=== PATIENT | male | born 1980 | race Caucasian/White ===

== ENCOUNTER 2017-03-12 10:36 | Observation (INO) | payer OTHER ==
[2017-03-12] MEDS ORDERED: LIDO/EPI 1% **Not for Epidural 20 ML MDV ONE (12:53)
[2017-03-12] MEDS ORDERED: EPINEPHrine 30 MG/30 ML MDV ONE (12:53)
[2017-03-12] MEDS ORDERED: METHYLENE BLUE 0.5% 50 MG/10 ML AMP ONE (12:53)
[2017-03-12] MEDS ORDERED: LIDOCAINE 1% 2 ML INJ ONE (13:02)
[2017-03-12] MEDS ORDERED: LIDOCAINE 1% 5 ML SDV ID PRN (13:28)
[2017-03-12] MEDS ORDERED: LR 1,000 ML IV ONE (13:28)
--- NOTE | 2017-03-12 13:36 | PDANEPAE ---
ANE Past Medical History - Cardiovascular History Hx Hypertension: No Hx Arrhythmias: No Hx Chest Pain: No Hx Coronary Artery / Peripheral Vascular Disease: No Hx CHF / Valvular Disease: No Hx Palpitations: No - Pulmonary History Hx COPD: No Hx Asthma/Reactive Airway Disease: No Hx Recent Upper Respiratory Infection: No Hx Oxygen in Use at Home: No - Neurologic History Hx Cerebrovascular Accident: No Hx Seizures: No Hx Dementia: No - Endocrine History Hx Diabetes: No - Renal History Hx Renal Disorders: No - Liver History Hx Hepatic Disorders: No - Neurological & Psychiatric Hx Hx Neurological and Psychiatric Disorders: No - Cancer History Hx Cancer: No - Congenital Disorder History Hx Congenital Disorders: No - GI History Hx Gastrointestinal Disorders: No - Chronic Pain History Chronic Pain: No ANE Review of Systems - Exercise capacity METS (RN): 4 METS - Systems Respiratory: Reports: other (Sleep apnea, uses CPAP with room air) Skin: Reports: other (Finasteride for alopecia) ANE Patient History - Allergies Allergies/Adverse Reactions: No Known Allergies Allergy (Unverified 03/05/17 11:08) - Home Medications Home Medications: Finasteride [Proscar 5 MG (*)] 5 mg PO DAILY 03/05/17 [Last Taken 03/11/17] - NPO status NPO Since - Liquids (Date): 03/12/17 NPO Since - Liquids (Time): 06:00 NPO Since - Solids (Date): 03/12/17 NPO Since - Solids (Time): 20:30 - Smoking Hx Smoking Status: Never smoked - Family Anes Hx Family Hx Anesthesia Complications: NEG ANE Labs/Vital Signs - Vital Signs Blood Pressure: 128/78 Heart Rate: 94 Respiratory Rate: 16 O2 Sat (%): 94 Height: 170.18 cm Weight: 81.647 kg
[2017-03-12] MEDS ORDERED: MIDAZOLAM 2 MG/2 ML VIAL IVP ONE (13:38)
[2017-03-12] MEDS ORDERED: NALOXONE HCL 0.4 MG/ML INJ IVP PRN ×3 (13:39→16:09)
[2017-03-12] MEDS ORDERED: LIDOCAINE 1% 2 ML INJ ID PRN (14:30)
--- NOTE | 2017-03-12 14:53 | PDHPUP ---
History & Physical Update H&P update statement: This history and physical update is based on an assessment of the patient which was completed after admission or registration (within 24 hours), but prior to the surgery/procedure. No changes from HP done in Clinic.
[2017-03-12] MEDS ORDERED: DEXAMETHASONE 10 MG/ML VIAL IVP ONE (14:57)
[2017-03-12] MEDS ORDERED: ceFAZolin 2 GM/DEXTROSE 100 ML IV ONE (14:57)
[2017-03-12] MEDS ORDERED: fentaNYL 100 MCG/2 ML INJ ONE ×4 (15:04→19:55)
[2017-03-12] MEDS ORDERED: PROPOFOL 200 MG/20 ML VIAL ONE (15:05)
[2017-03-12] MEDS ORDERED: MIDAZOLAM 2 MG/2 ML VIAL ONE (15:14)
[2017-03-12] MEDS ORDERED: ROCURONIUM 50 MG/5 ML VIAL ONE (15:51)
[2017-03-12] MEDS ORDERED: LIDOCAINE 2% 5 ML SDV ONE (15:51)
[2017-03-12] MEDS ORDERED: ONDANSETRON 4 MG/2 ML VIAL ONE ×2 (15:51→19:02)
[2017-03-12] MEDS ORDERED: METOCLOPRAMIDE 10 MG/2 ML VIAL IVP PRN (16:09)
[2017-03-12] MEDS ORDERED: HYDROCODONE/APAP 5/325 TAB PO PRN (16:09)
[2017-03-12] MEDS ORDERED: ONDANSETRON 4 MG/2 ML VIAL IVP PRN ×2 (16:09→18:51)
[2017-03-12] MEDS ORDERED: LABETALOL HCL 5 MG/ML 20 ML MDV IVP PRN (16:09)
[2017-03-12] MEDS ORDERED: fentaNYL 100 MCG/2 ML INJ IVP PRN (16:09)
[2017-03-12] MEDS ORDERED: ENALAPRILAT DIHYDRATE 1.25 MG/ML VIAL IVP PRN (16:09)
[2017-03-12] MEDS ORDERED: PROMETHAZINE HCL 25 MG/ML INJ IVP PRN (16:09)
[2017-03-12] MEDS ORDERED: LR 500 ML IV PRN (16:09)
[2017-03-12] MEDS ORDERED: MEPERIDINE 25 MG/ML SYR IVP PRN (16:09)
--- NOTE | 2017-03-12 17:32 | POSTOPPROG ---
Post Op Note Date of Operation: 03/12/17 Surgeon: Aurora June Anesthesiologist: Roxanna Anesthesia: GET(General Endotracheal) Pre-op Diagnosis: nasal obstruction, RETA Post-op Diagnosis: same Procedure: endoscopically assisted septoplasty, SMR turbs Findings: DNS L, enlarged ITs B Inf/Abcess present in the surg proc area at time of surgery?: No EBL: Minimal Complications: none apparent
[2017-03-12] MEDS ORDERED: HYDROCODONE/APAP 5/325 TAB ONE (18:39)
[2017-03-12] MEDS ORDERED: OXYMETAZOLINE 30 ML NASAL SPRAY EACHNARE PRN (18:51)
[2017-03-12] MEDS ORDERED: OXYCODONE/APAP 5/325 TAB PO PRN (18:51)
[2017-03-12] MEDS ORDERED: SODIUM CL NASAL 45 ML BTL EACHNARE PRN (18:56)
[2017-03-12] MEDS ORDERED: D5W 1/2 NS W/ 20 KCl/L 1,000 ML IV SCH (19:00)
[2017-03-12] MEDS ORDERED: LABETALOL HCL 50 MG/10 ML SYR ONE (19:26)
--- NOTE | 2017-03-12 19:29 | POSTANESTH ---
Post Anesthetic Evaluation Cardiovascular Status: Normal, Stable Respiratory Status: Normal, Stable, Similar to Pre-op Cond. Level of Consciousness/Mental Status: Can Participate in Eval, Alert and Oriented Pain Control: Adequate, Prn Tx Ordered, Inadeq, Add Tx Required Nausea/Vomiting Control: Adequate, Prn Tx Ordered, Inadeq, Add Tx Reqired Complications Possibly Related to Anesthesia: None Noted (BP a little elevated, but no bleeding or other symptoms.)
[2017-03-12] MEDS: CEPHALEXIN 500 MG CAP PO SCH (21:31)
[2017-03-12] MEDS: ACETAMINOPHEN 500 MG TAB PO PRN (21:31)
[2017-03-13] MEDS: ACETAMINOPHEN 500 MG TAB PO PRN (06:25)
[2017-03-13] MEDS: CEPHALEXIN 500 MG CAP PO SCH (08:50)
[2017-03-13] MEDS ORDERED: FINASTERIDE 5 MG TAB PO SCH (09:00)
[2017-03-13 10:33] VITALS: O2SAT 92
[2017-03-13 11:50] VITALS: BP 115/76; PULSE 80; RESP 14; TEMP 97.5
--- NOTE | 2017-03-13 12:43 | SOAPPROG ---
SOAP Progress Note Assessment/Plan: Assessment: POD 1 septoplasty adn SMR turbs. Pain controlled, no sig bleeding. minimal desats last night, was on 2L o2. off since 8 am. Has RETA, not overly concerned about slight desats during sleep, have talked with Dr. Mcgrath with [facility]. d/c home, f/u 1 week Plan: 03/13/17 12:41 Subjective: Doing well, did ok o/n. Was on 2 L o2 d/t desats, has RETA, wears CPAP at home. Objective: AFVSS RA minimal dried blood at nares, no active bleeding congestion RA, sats mid to lower 90s Vital Signs Temp Pulse Resp BP Pulse Ox 36.4 C 80 14 115/76 92 03/13/17 11:50 03/13/17 11:50 03/13/17 11:50 03/13/17 11:50 03/13/17 11:50 03/12/17 03/13/17 03/14/17 05:59 05:59 05:59 Intake Total 2270 Output Total 1403 Balance 867 ICD10 Worksheet Patient Problems: Problems Problem Status Onset Obstructive sleep apnea Acute - ICD10 Problem Qualifiers (1) Obstructive sleep apnea
--- NOTE | 2017-03-19 15:13 | GOP ---
[f rep st] OPERATIVE REPORT DATE OF OPERATION: 03/12/2017 SURGEON: Aurora June MD ANESTHESIA: General. PREOPERATIVE DIAGNOSIS: 1. Nasal obstruction. 2. Deviated nasal septum. 3. Enlarged inferior turbinates bilaterally. 4. Obstructive sleep apnea. POSTOPERATIVE DIAGNOSIS: 1. Nasal obstruction. 2. Deviated nasal septum. 3. Enlarged inferior turbinates bilaterally. 4. Obstructive sleep apnea. PROCEDURE PERFORMED: 1. Septoplasty. 2. Submucous resection of the inferior turbinates bilaterally. 3. Nasal endoscopy. FINDINGS: Patient is found to have about a 70% deviation of the left nasal cavity due to a deviated nasal septum. He was noted to have enlarged inferior turbinates as well, and postoperatively he wa s noted to have a patent nasal cavity on both sides. ESTIMATED BLOOD LOSS: Minimal. INDICATIONS: The patient is a very pleasant 36-year-old man who has a history of obstructive sleep apnea as well as nasal obstruction, more on the left than the right. He has tried nasal sprays with out significant benefit. He does wear CPAP at night. It was felt he would benefit from the above p rocedure. DESCRIPTION OF PROCEDURE: The patient was first seen in the preoperative area, where informed conse nt was obtained. He was then brought back to the operating room, where Anesthesia sedated and intub ated him. The bed was turned 90 degrees. He was prepped and draped in a normal fashion. A univers al time-out was performed and confirmed that we had the right patient and procedure. At this point, an anterior rhinoscopy was performed, and this had the above-noted findings. I then used about 7 c c of 1% lidocaine with 1:100,000 epinephrine, injected this into the bilateral septum as well as the head of the inferior turbinates on each side. Once this was done, the needle was removed and epi-s oaked pledgets were placed within the nasal cavity bilaterally. After about a minute or so these we re removed, and then a left-sided hemitransfixion incision was made with a 15 blade scalpel. A caud al elevator was used to elevate a mucoperichondrial flap on this left side all the way back to the b ju cartilaginous junction. The zero-degree scope was used preoperatively to evaluate the nasal cav ity on both sides, and then after the hemitransfixion incision was made and elevated slightly, the z ero-degree scope was used to place this through the hemitransfixion incision and allow this to eleva te the mucoperichondrial flap back more posteriorly, getting good visualization and confirmation juan carlos t we were in the right plane. Once this had been done, the bony cartilaginous junction was still di slocated using the caudal, starting inferiorly and then extending this slightly superiorly, but taki ng care to leave at least a 10 mm strut caudally and dorsally. Once this was done, I then used a D knife under direct visualization, and this was used to make an incision from superior to inferior an d posterior to anterior. Once this was done, the cartilage was elevated off the opposing mucoperich ondrial flap until it was completely released, and then a Kosta was used to remove this as a who le. After this was done, the zero-degree scope was then placed and this was utilized to elevate a m ucoperichondrial flap on the right side along the bone. Once this was completely released, a combin ation of hand instruments were used to take down any intervening bone that was obstructing, as well as the zero-degree scope was used for visualization as well as to look at the right and left nasal c avities to confirm improvement in the obstruction. He also had a slight spur inferiorly, and so at this point the mucoperichondrial flap was elevated inferiorly off the nasal spine on both sides and then a small osteotome was used to remove the spur as it extended back on the left side. This was r emoved as a whole through the hemitransfixion incision. At this point, the zero-degree scope was us ed and he was noted to have a patent nasal cavity bilaterally with significant improvement on the le ft side. So at this point, the zero-degree scope was used to visualize the inferior turbinate, and the microdebrider using a 2 mm turbinate blade was used to place a small stab incision in the head o f the inferior turbinate on the left, and then the microdebrider was used to perform the SMR along t he length of the inferior turbinate. Once this was done this was removed, and then we did the exact same thing on the right side. Once this was done, then the classroom assistant instrument was used to outfra cture the inferior turbinates bilaterally, and then epi-soaked pledgets were placed within the nares bilaterally to give some vasoconstriction. Once this had sufficient time to act these were removed , and then he was noted to have significantly more patent nasal cavities bilaterally on anterior rhi noscopy. So at this point, a 4-0 plain gut on a Neel needle was used to place quilting sutures thr ough and through the septal flaps on each side, approximating these together, and then a 4-0 chromic in interrupted fashion was used to close the hemitransfixion incision on the left side. Once this was done, I then used some Park splints that were cut to size and these were placed on either side of the septum and then sutured into place using a 3-0 Prolene through and through in the caudal sept um. So at this point, the nasal cavity was irrigated out copiously with normal saline and then suct ioned clear. An OG tube was used to suction out the pharynx as well as the esophagus, and then this was removed. The patient was turned back over to anesthesia, where he was awakened and extubated, and taken to PACU in stable condition. There were no complications. He tolerated the procedure darshana saravia. COMPLICATIONS: None. /[id number]/MODL
== END 2017-03-13 15:20 | disposition home or self-care (01) ==
LOC: PREOBSVTOIN 10:36 → F3E 12:22 → PREINTOOBSV 13:43 → F1N 20:21
PROVIDERS: ADMIT Otolaryngology; ATTEND Otolaryngology
PROC: 09BL4ZZ Excision of Nasal Turbinate, Percutaneous Endoscopic Approach (ICD-10-PCS; principal; 2017-03-12 13:30)
PROC: 09QM4ZZ Repair Nasal Septum, Percutaneous Endoscopic Approach (ICD-10-PCS; principal; 2017-03-12 13:30)
DX: J34.89 Other specified disorders of nose and nasal sinuses (principal); J34.3 Hypertrophy of nasal turbinates; G47.33 Obstructive sleep apnea (adult) (pediatric)
CPT/HCPCS: 30140; 30520; G0378; J0690; J2250; J2405; J2704; J3010; Q9968

== ENCOUNTER 2018-01-12 16:39 | Emergency (ER) | payer OTHER ==
--- NOTE | 2018-01-12 17:10 | CPEKG ---
Heart Rate: 82 RR Interval: 732 P-R Interval: 140 QRSD Interval: 88 QT Interval: 364 QTC Interval: 425 P [place]: 37 QRS [place]: 47 T Wave [place]: 20 EKG Severity - NORMAL ECG - EKG Impression: SINUS RHYTHM Electronically Signed By: Garry Floyd 12-Jan-2018 22:44:19
--- NOTE | 2018-01-12 18:58 | EDPHY ---
H & P Time Seen by Provider: 01/12/18 17:07 HPI/ROS: HPI Chest discomfort. 37-year-old male by private vehicle. This patient reports that over the last couple of months he has had intermittent chest discomfort which she describes in his left upper chest and left parasternal area. He describes it as an aching and tightness that comes on spontaneously in usually resolves spontaneously. He also has a history of GERD. He reports that this morning at 10:30 a.m. he had an episode of this pain that lasted about 30 min and then went away. He reports he felt fine the rest of the afternoon until prior to coming to the emergency department when he had another episode of the chest discomfort. He described it as above. He states that by the time he got to the emergency department it went away. No associated shortness of breath. Denies hypertension, hyperlipidemia, diabetes. He does not smoke. Denies significant family history of coronary artery disease. ROS: Constitutional: No fever, no chills. No weakness. Eyes: No discharge. No changes in vision. ENT: No sore throat. No nasal congestion or rhinorrhea. Respiratory: No cough. No shortness of breath. Cardiac: As above, no palpitations. Gastrointestinal: No abdominal pain, no vomiting, no diarrhea. Genitourinary: No hematuria. No dysuria or increased frequency with urination. Musculoskeletal: No back pain. No neck pain. No myalgias or arthralgias. Skin: No rashes. Neurological: No headache. No focal weakness or altered sensation. Past medical history: GERD. Social history: Nonsmoker. Social alcohol. Here by himself. Physical Exam: General Appearance: Alert, no distress. This patient is responding to questions appropriately and in full sentences. This patient appears well- hydrated and well-nourished. Eyes: Pupils equal and round no pallor or injection. No lid edema, erythema or injection. Respiratory: There are no retractions, lungs are clear to auscultation with good air movement bilaterally. Cardiovascular: Regular rate and rhythm. No murmur. Gastrointestinal: Abdomen is soft and nontender, no masses, bowel sounds normal. No focal tenderness at McBurney's point. No Aguirre sign. Neurological: Motor sensory function is grossly intact. Cranial nerves are normal. Gait is normal. Skin: Warm and dry, no rashes. Musculoskeletal: Neck is supple and nontender. Extremities are symmetrical. All joints range without pain or impingement. Psychiatric: No agitation. No depression. Database: EKG: EKG time is 5:08 p.m.; EKG shows a narrow complex normal sinus rhythm with a ventricular rate of 82. The MD, QRS, QT intervals are within normal limits. There are no ST-T wave changes indicative of ischemic or injury pattern. No evidence of right heart strain. Interpreted by me. Imaging: Chest x-ray PA and lateral; the cardiac mediastinal silhouette is unremarkable. No evidence of infiltrate or pneumothorax. No acute cardiopulmonary disease process noted. Interpreted by me. Procedures: Emergency department course: Patient has been chest pain-free since being in the emergency department. Vital signs reviewed. He is moderately hypertensive. Vital signs otherwise normal. EKG obtained and reviewed by myself. 7:00 p.m., patient re-evaluated. Resting comfortably at this time. He has a negative 8 hr troponin from onset of his pain. I feel he is safe for discharge and he feels comfortable going home. I will have him follow up with [facility] on Sunday or Sunday of this week for re-evaluation of his chest discomfort. Return to emergency department cautions were thoroughly reviewed with him. He understands his follow-up. All of his questions were answered. He was discharged in good condition. Differential Diagnosis: The differential diagnosis on this patient includes but is not limited to GERD, pleurisy, costochondritis, anxiety reaction. Acute coronary syndrome, pulmonary embolism, aortic dissection, myocarditis, pericarditis, pneumonia unlikely. This represents a partial list of diagnoses considered. These considerations are based on history, physical exam, past history, reassessment and diagnostic testing. Smoking Status: Never smoked Constitutional: Initial Vital Signs Temperature (C) 37.1 C 01/12/18 16:46 Heart Rate 84 01/12/18 16:46 Respiratory Rate 16 01/12/18 16:46 Blood Pressure 146/84 H 01/12/18 16:46 O2 Sat (%) 96 01/12/18 16:46 O2 Delivery Mode Room Air Allergies/Adverse Reactions: No Known Allergies Allergy (Unverified 01/12/18 16:45) Home Medications: Medication Instructions Recorded Finasteride [Proscar 5 MG (*)] 5 mg PO DAILY 06/05/17 Medical Decision Making - Diagnostics Imaging Results: Imaging Impressions Chest X-Ray 01/12/18 17:03 Impression: Normal. - Data Points Laboratory Results: Laboratory Results 01/12/18 18:00 01/12/18 18:00 Sodium 140 mEq/L mEq/L (135-145) Potassium 4.1 mEq/L mEq/L (3.5-5.2) Chloride 104 mEq/L mEq/L (97-110) Carbon Dioxide 24 mEq/l mEq/l (22-31) Anion Gap 12 mEq/L mEq/L (8-16) BUN 14 mg/dL mg/dL (7-23) Creatinine 0.9 mg/dL mg/dL (0.7-1.3) Estimated GFR > 60 Glucose 87 mg/dL mg/dL (70-100) Calcium 9.9 mg/dL mg/dL (8.5-10.4) Troponin I < 0.012 ng/mL ng/mL (0.000-0.034) Departure - Departure Disposition: Home, Routine, Self-Care Clinical Impression: Chest discomfort Condition: Good Instructions: Chest Pain (ED) Additional Instructions: Read and follow provided instructions. Follow-up with Dr. Veena Beatty 1 of her partners at [facility] on Sunday or Sunday for re-evaluation and any further management. Call their office on Sunday morning for appointment time. Explained this is for an emergency department follow-up. Return to the emergency department for return of chest pain, shortness of breath , weakness or other serious concerns. Referrals: Veena Beatty MD [Medical Doctor] - As per Instructions
[2018-01-12 19:12] VITALS: BP 131/68
== END 2018-01-12 19:12 | disposition home or self-care (01) ==
DX: R07.89 Other chest pain (principal)

== ENCOUNTER → 2018-02-18 | Outpatient (CLI) | payer OTHER | LOC: BMCIMAGING 16:49 | PROVIDERS: ATTEND Internal Medicine | DX: M25.531 Pain in right wrist (principal) ==